=== PATIENT | female | born 1980 | race Hispanic/Latino ===

== ENCOUNTER 2017-12-08 20:20 | Observation (INO) | payer OTHER ==
[~2017-12-08] VITALS: Ht 160 cm; Wt 89.4 kg
[2017-12-08 21:10] LABS: BILIRUBIN,URINE NEGATIVE (NEGATIVE); UROBILINOGEN,URINE NORMAL (NEGATIVE)
[2017-12-08 21:11] LABS: APPEARANCE,URINE CLEAR (CLEAR); UA COLOR STRAW (YELLOW)
[2017-12-08 22:53] VITALS: BP 127/75
[2017-12-13] MEDS ORDERED: HYDR-926 PO (19:39)
== END 2017-12-08 23:00 | disposition home or self-care (01) ==
LOC: ATP 20:20
PROVIDERS: ADMIT Obstetrics & Gynecology; ATTEND Obstetrics & Gynecology
DX: O62.9 Abnormality of forces of labor, unspecified (principal); Z3A.39 39 weeks gestation of pregnancy
CPT/HCPCS: 81002; G0378 ×3

== ENCOUNTER 2017-12-11 19:22 | Inpatient (IN) | payer OTHER ==
[~2017-12-11] VITALS: Ht 160 cm; Wt 91.2 kg
[2017-12-11] MEDS ORDERED: CYTOTEC PV STA (19:36)
[2017-12-11] MEDS ORDERED: D5LR 1000ML 1,000 ML ONE (19:49)
[2017-12-11 19:54] LABS: MEAN CELL HGB 24.8 pg (26-34); MEAN CELL HGB CONCENTRATION 31.3 g/dL (33-37); MEAN CORP VOLUME 79.4 fL (78-100); MEAN PLATELET VOLUME 12.1 fL (7.8-11.0); RED CELL DISTRIBUTION WIDTH 15.8 % (11.5-14.5); WHITE BLOOD CELL 7.6 10^3/uL (4.5-11.0)
[2017-12-11] MEDS ORDERED: ATARAX PO PRN (20:00)
[2017-12-11] MEDS ORDERED: AMPICILLIN SODIUM ONE (20:11)
[2017-12-11] MEDS ORDERED: NS 100ML 100 ML IV ONE (20:11)
[2017-12-11] MEDS: LACTATED RINGERS 1,000 ML IV SCH (21:28)
[2017-12-11] MEDS ORDERED: AMPICILLIN IV SCH (21:30)
[2017-12-12] MEDS ORDERED: NS 100ML 100 ML IV ONE ×2 (01:28→05:20)
[2017-12-12] MEDS ORDERED: CYTOTEC PV STA (01:37)
[2017-12-12] MEDS: AMPICILLIN 1 GM in NS 100ML 100 ML IV SCH ×5 (01:40→17:35)
[2017-12-12] MEDS: LACTATED RINGERS 1,000 ML IV SCH ×2 (05:31→11:51)
[2017-12-12] MEDS ORDERED: LR/PITOCIN 500 ML IV ONE (05:50)
[2017-12-12] MEDS ORDERED: OXYTOCIN IV ONE (08:50)
[2017-12-12] MEDS ORDERED: LACTATED RINGERS IV ONE (08:50)
[2017-12-12] MEDS ORDERED: LACTATED RINGERS 2,000 ML ONE (11:33)
[2017-12-12] MEDS ORDERED: NAROPIN 0.2% 100 ML BAG 100 ML ONE (12:01)
[2017-12-12] MEDS ORDERED: SENSORCAINE-MPF 0.25% VIAL ONE (12:01)
[2017-12-12] MEDS ORDERED: LACTATED RINGERS 1,000 ML IV SCH (13:00)
[2017-12-12] MEDS ORDERED: LR/PITOCIN 500 ML IV SCH ×2 (13:00→20:00)
[2017-12-12] MEDS ORDERED: WATER ONE (15:29)
[2017-12-12] MEDS ORDERED: LIDOCAINE 1% VIAL ONE (15:29)
--- NOTE | 2017-12-12 19:28 | PRM.DELNOT ---
Delivery Summary Delivery: Spont. Vaginal Delivery (FAILED VACUUM (TWO POP-OFF's)--PT SUBSEQUENTLY PUSHED HER BABY OUT; NO NUCHAL CORD; CLEAR-COLORED FLUID/MEMBRANES THROUGHOUT; PITOCIN MAX AT 4mU/min; EPIDURAL WORKING WELL; DELIVERY AT 1841) EBL: 200 Repair: 1 Degree (First degree vaginal/perineal--repaired with 2-0 Chromic in layers; good cosmetic effect achieved) Scores: 8 and 9 Sex of : Female Weight (Grams): 3809 Presentation: vtx MICHAELLE BECKHAM MD Dec 12, 2017 19:28
--- NOTE | 2017-12-12 19:35 | PCM.HP ---
OB - Chief Complaint & HPI Date of Admission: Date of Admission: Dec 11, 2017 at 19:22 Diagnosis Cassie Guzman is a 37yo Hisp female Armenian-only speaking, with PNC with [facility] at the [facility] who was brought in for induction of labor yesterday evening with Cytotec. She received two doses of Cytotec intravaginally. I performed AROM/Clear at 0954. She is currently on Pitocin 4mU/min and her epidural is working well. She is fully dilated and ready to push. She was brought in for induction for more of an elective reason. 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 She has been in severe discomfort for nearly the entire . She is GBS+ and she has been receiving Ampicillin IV for GBS prophylaxis. 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 GBS Status: Positive OB - Admission Exam Physical Exam HEENT: NCAT Lungs: Clear Abdomen: Gravid Extremities: Normal Reflexes: Normal Cervical Dilatation: 10cm Effacement: 100% Station: +3 Membranes: Ruptured Amniotic Fluid: Clear Heart Rate: 140's Accelerations: Accelerations Present Decelerations: Variable Decelerations Detention Variability: Average (6-25) Contractions on Admission: >10 Minutes Apart Date/Time Contractions Began;: N/A Frequency of Contractions: Q 2-3 mins apart Intensity: Moderate Presentation: vtx OB - Assessment/Plan Assessment Assessment: induction of labor Plan Plan: Expectant Management (PUSH!!) MICHAELLE BECKHAM MD Dec 12, 2017 19:35
[2017-12-12] MEDS ORDERED: DERMOPLAST SPRAY TP PRN (20:00)
[2017-12-12] MEDS ORDERED: NORCO 5MG PO PRN ×2 (20:00)
[2017-12-12] MEDS ORDERED: TYLENOL PO PRN (20:00)
[2017-12-12] MEDS ORDERED: LANOLIN HYDROUS TP PRN (20:00)
[2017-12-12] MEDS ORDERED: MYLANTA PO PRN (20:00)
[2017-12-12] MEDS ORDERED: MOTRIN PO PRN (20:00)
[2017-12-12] MEDS ORDERED: TUCKS TP PRN (20:00)
[2017-12-12] MEDS ORDERED: COLACE PO SCH (21:00)
[2017-12-13 05:24] LABS: BASOPHIL % 0.1 % (0.0-0.2); EOSINOPHIL # 0.1 10^3/uL (0.0-0.2); EOSINOPHIL % 0.4 % (0.0-5.0); HEMOGLOBIN 9.8 g/dL (12.0-15.0); LYMPHOCYTES % 14.6 % (24.0-44.0); MEAN CELL HGB 24.7 pg (26-34); MEAN CELL HGB CONCENTRATION 31.3 g/dL (33-37); MEAN PLATELET VOLUME 12.5 fL (7.8-11.0); MONOCYTES # 1.3 10^3/uL (0.3-0.8); MONOCYTES % 9.1 % (5.0-12.0); NEUTROPHIL # 10.5 10^3/uL (1.8-7.7); NEUTROPHILS % 75.3 % (41.0-85.0); RED CELL DISTRIBUTION WIDTH 15.8 % (11.5-14.5); WHITE BLOOD CELL 13.9 10^3/uL (4.5-11.0)
[2017-12-13] MEDS ORDERED: HYDR-926 PO (19:39)
--- NOTE | 2017-12-13 19:41 | PRM.DC ---
OB Discharge Summary Discharge Summary Discharge Diagnosis: Status Post (2 pop-off's with Kiwi vacuum--pt pushed her baby out; this was a successful induction of labor with Pitocin) Complications: No Complications Abnormal Lab Results Laboratory Tests Test 12/11/17 19:47 12/13/17 05:00 White Blood Count 7.6 10^3/uL 13.9 10^3/uL Red Blood Count 4.03 10^6/uL 3.96 10^6/uL Hemoglobin 10.0 g/dL 9.8 g/dL Hematocrit 32.0 % 31.3 % Mean Corpuscular Volume 79.4 fL 79.0 fL Mean Corpuscular Hemoglobin 24.8 pg 24.7 pg Mean Corpuscular Hemoglobin Concent 31.3 g/dL 31.3 g/dL Red Cell Distribution Width 15.8 % 15.8 % Platelet Count 164 10^3/uL 147 10^3/uL Mean Platelet Volume 12.1 fL 12.5 fL Hepatitis B Surface Antibody Non Reactive Neutrophils (%) (Auto) 75.3 % Lymphocytes (%) (Auto) 14.6 % Monocytes (%) (Auto) 9.1 % Neutrophils # (Auto) 10.5 10^3/uL Lymphocytes # (Auto) 2.0 10^3/uL Monocytes # (Auto) 1.3 10^3/uL Absolute Immature Granulocyte (auto 0.07 10^3 u/L Eosinophils % 0.4 % Basophils % 0.1 % Basophils # 0.0 10^3/uL Eosinophil Count 0.1 10^3/uL Percent Immature Gran (Cell Imm) 0.50 % Medications: Other (Rx for Mora 5/325 #30 no refills, written on triplicate prescription pad) Discharge Disposition: Stable Discharge Instructions: Pelvic Rest x 6 Weeks, Clinic F/U 1-2 Weeks, Regular Diet, Regular Activity, Meds as Prescribed, Call MD for Problems MICHAELLE BECKHAM MD Dec 13, 2017 19:41
[2017-12-14 09:20] VITALS: BP 131/76
== END 2017-12-14 10:00 | disposition home or self-care (01) | DRG 775 ==
LOC: LND 19:22
PROVIDERS: ADMIT Hospitalist; ATTEND Hospitalist
PROC: 10E0XZZ Delivery of Products of Conception, External Approach (ICD-10-PCS; principal; 2017-12-11)
PROC: 10907ZC Drainage of Amniotic Fluid, Therapeutic from Products of Conception, Via Natural or Artificial Opening (ICD-10-PCS; 2017-12-11)
PROC: 0HQ9XZZ Repair Perineum Skin, External Approach (ICD-10-PCS; 2017-12-11)
PROC: 3E0S3BZ Introduction of Anesthetic Agent into Epidural Space, Percutaneous Approach (ICD-10-PCS; 2017-12-11)
PROC: 00HU33Z Insertion of Infusion Device into Spinal Canal, Percutaneous Approach (ICD-10-PCS; 2017-12-11)
DX: O99.824 Streptococcus B carrier state complicating childbirth (principal); O76 Abnormality in fetal heart rate and rhythm complicating labor and delivery; O70.0 First degree perineal laceration during delivery; O87.4 Varicose veins of lower extremity in the puerperium; Z37.0 Single live birth; O66.5 Attempted application of vacuum extractor and forceps; Z3A.39 39 weeks gestation of pregnancy
CPT/HCPCS: 36415; 59400; 82948; 85025; 85027; 86706; 86900; J0290; J2001; J2590; J3490; J7042; J7050; J7120

== ENCOUNTER 2018-03-02 02:44 | Day surgery (SDC) | payer OTHER ==
[2018-02-27 15:54] VITALS: BP 134/89
[2018-02-27 16:13] LABS: BASOPHIL % 0.3 % (0.0-0.2); EOSINOPHIL # 0.1 10^3/uL (0.0-0.2); EOSINOPHIL % 0.6 % (0.0-5.0); HEMOGLOBIN 13.4 g/dL (12.0-15.0); LYMPHOCYTES # 2.3 10^3/uL (1.0-4.8); LYMPHOCYTES % 29.4 % (24.0-44.0); MEAN CELL HGB 26.9 pg (26-34); MEAN CELL HGB CONCENTRATION 33.8 g/dL (33-37); MEAN CORP VOLUME 79.7 fL (78-100); MEAN PLATELET VOLUME 10.8 fL (7.8-11.0); MONOCYTES # 0.4 10^3/uL (0.3-0.8); MONOCYTES % 5.7 % (5.0-12.0); NEUTROPHILS % 63.9 % (41.0-85.0); RED CELL DISTRIBUTION WIDTH 18.2 % (11.5-14.5); WHITE BLOOD CELL 7.8 10^3/uL (4.5-11.0)
[2018-02-27 16:15] LABS: BILIRUBIN,URINE NEGATIVE (NEGATIVE); UROBILINOGEN,URINE NORMAL (NEGATIVE)
[2018-02-27 16:21] LABS: CARBON DIOXIDE 21.7 mmol/L (20.0-32)
[2018-02-27 16:29] LABS: APPEARANCE,URINE HAZY (CLEAR); UA COLOR YELLOW (YELLOW)
[~2018-03-02] VITALS: Ht 160 cm; Wt 83.5 kg
[2018-03-02] VITALS (10 sets, daily range): BP systolic 106–136; BP diastolic 43–76
[~2018-03-02 02:44] MED LIST: HYDR-926 PO
--- NOTE | 2018-03-02 02:46 | PCM.HP ---
History of Present Illness Reason for Visit: (1) Sterilization ICD Code: Z30.2 - Encounter for sterilization SNOMED: [id number] Was this Problem Present on Ad: Yes-DX present @time ofIP Hx of Present Illness This patient is a 37yo LMP 02/09/18 on Depo provera for contraception here for sterilization. She has been counseled on the risks, benefits, and alternatives of surgery, cinlduing risk of pain, bleeding, injury to uterus/ bowel/ovary, risk of regret, alternatives including contraceptive pills, implant , and IUD. No significant past medical or surgical history. Social history-she drinks alcohol less than once a month, does not smoke, and does not use recreation drugs. Past Medical History Hx Last Menstrual Period: 02/09/18 Vaccines/Immunizations up-to-d: Yes Travel History EBOLA RISK:Travel to/contact w: No Is pt experiencing any Ebola s: No Review of Systems Constitutional: No: Fever, Chills, Sweats, Weakness, Malaise, Other Eyes: No: Pain, Vision change, Conjunctivae inflammation, Eyelid inflammation, Other, Redness ENT: No: Ear pain, Ear discharge, Nose pain, Nose discharge, Nose congestion, Mouth pain, Mouth swelling, Throat pain, Throat swelling, Other Respiratory: No: Cough, Dry, Shortness of breath, SOB with excertion, Wheezing , Hemoptysis, Pleuritic Pain, Sputum, Wheezing, Other Cardiovascular: No: Chest Pain, Palpitations, Orthopnea, Paroxysmal Noc. Dyspnea, Edema, Lt Headedness, Other Gastrointestinal: No: Nausea, Vomiting, Abdominal Pain, Diarrhea, Constipation , Melena, Hematochezia, Other Genitourinary: No Dysuria, No Frequency, No Incontinence, No Hematuria, No Retention, No Other Musculoskeletal: No: other, neck pain, shoulder pain, arm pain, back pain, hand pain, leg pain, foot pain Skin: No: Rash, Lesions, Jaundice, Bruising, Other Neurological: No: Weakness, Numbness, Incoordination, Change in speech, Confusion, Seizures, Other Allergies: Coded Allergies: No Known Allergies (Unverified , 02/27/18) No Active Prescriptions or Reported Meds VTE VTE Risk Total Score: 2 VTE Risk Score VTE Risk: Score 0-1 = Low Risk (Aggressive mobilization; early ambulation; no VTE prophylaxis required) Score 2: Moderate Risk (Intermittent/Pneumatic Compression Device OR Lovenox/Heparin/Coumadin) Score 3-4: High Risk (Intermittent/Pneumatic Compression Device AND Lovenox/Heparin/Coumadin) Score > or =5: Highest Risk (Intermittent/Pneumatic Compression Device AND Lovenox/Heparin/Coumadin) Antico:Hep/LMWH/Coum/Xarelto: No Mechanical device ordered: Yes VTE VTE Present on Admission: No Currently receiving anticoagul: No VTE Risk Total Score: 2 Antico:Hep/LMWH/Coum/Xarelto: No Mechanical device ordered: Yes Exam Vital Signs Vital Signs Date Time Temp Pulse Resp B/P (MAP) Pulse Ox O2 Delivery O2 Flow Rate FiO2 03/02/18 10:38 Room Air 03/02/18 10:38 97.8 80 16 136/62 (86) 99 General Appearance: Alert, Oriented X3, Cooperative, No acute distress HEENT: Atraumatic, PERRLA, EOMI, Mucous membr. moist/pink Respiratory: Clear to auscultation Cardiovascular: Regular rate, Normal S1, Normal S2, No murmurs Abdominal: Normal bowel sounds, No tenderness Extremities: No clubbing, No cyanosis, No edema Skin: No rash, No breakdown, No lesions Neuro: Normal gait, Normal speech Psych/Mental Status: Mental status NL, Mood NL Assessment/Plan Assessment/Plan Assessment/Plan 37yo desiring sterilization. We will proceed with laparoscopic sterilization, followed by discharge home. Patient History: Hypertension 33 FATHER No known health problems 32 MOTHER, , Age:37 G8 BROTHER G8 SISTER G8 SISTER 19 CHILD 19 CHILD 19 CHILD G8 BROTHER 19 CHILD No Family History of: Alzheimer's disease Asthma Cerebrovascular disorder Chronic obstructive pulmonary disease Congestive heart failure Diabetes insipidus Diabetes mellitus Parkinson's disease CINTHIA CORNELL MD Mar 02, 2018 13:57
[2018-03-02] MEDS ORDERED: LACTATED RINGERS 1,000 ML ONE ×2 (05:15→14:04)
[2018-03-02] MEDS ORDERED: LACTATED RINGERS 1,000 ML IV SCH (10:30)
[2018-03-02] MEDS ORDERED: SODIUM CHLORIDE IR ONE (11:05)
[2018-03-02] MEDS ORDERED: SENSORCAINE-MPF 0.25% VIAL ONE (11:05)
[2018-03-02] MEDS ORDERED: SODIUM CHLORIDE IRR BAG 1,000 ML ONE (11:05)
[2018-03-02] MEDS ORDERED: XYLOCAINE 2%-EPI 1:100,000 ONE (12:28)
[2018-03-02] MEDS ORDERED: LIDOCAINE 2% VIAL ONE (12:32)
[2018-03-02] MEDS ORDERED: DECADRON ONE (12:32)
[2018-03-02] MEDS ORDERED: TORADOL ONE (12:32)
[2018-03-02] MEDS ORDERED: NEOSTIGMINE ONE (12:32)
[2018-03-02] MEDS ORDERED: ZOFRAN ONE (12:32)
[2018-03-02] MEDS ORDERED: ZEMURON IV ONE (12:33)
[2018-03-02] MEDS ORDERED: SUBLIMAZE ONE (12:33)
[2018-03-02] MEDS ORDERED: DIPRIVAN IV ONE (12:33)
[2018-03-02] MEDS ORDERED: SUBLIMAZE IV PRN (14:00)
[2018-03-02] MEDS ORDERED: PHENERGAN IV PRN (14:00)
[2018-03-02] MEDS ORDERED: ZOFRAN IV PRN (14:00)
[2018-03-02] MEDS ORDERED: ACET-685 PO (14:03)
[2018-03-02] MEDS ORDERED: IBUP-598 PO (14:03)
--- NOTE | 2018-03-02 16:04 | OPH ---
DATE OF SURGERY: 03/02/2018 PRIMARY SURGEON: Tylor Nathan MD COMPOUND WORKER: Dr. Awad. TIMBER SKIDDER: Dr. Hai Christianson. ANESTHESIA USED: General. PREOPERATIVE DIAGNOSIS: Multiparity, desiring permanent sterilization. POSTOPERATIVE DIAGNOSIS: Normal appearing pelvic anatomy. SURGICAL PROCEDURES PERFORMED: Laparoscopic bilateral salpingectomy. SPECIMENS COLLECTED: Bilateral fallopian tubes. ESTIMATED BLOOD LOSS: 11 mL. INDICATIONS: This patient had had multiple vaginal deliveries and was interested in permanent irreversible sterilization. She was counseled on various forms of contraception including pills, patches, subdermal contraceptive implant, intrauterine device and she after being counseled on the risks and benefits of each, agreed to undergo irreversible laparoscopic sterilization by salpingectomy. DESCRIPTION OF PROCEDURE: She was taken to the operating room, where general endotracheal anesthesia was administered without difficulty. She was placed in the dorsal lithotomy position and prepped and draped in the usual sterile fashion. A sponge stick was placed in the vagina and used to manipulate the uterus. Just superiorly to the umbilicus, local anesthetic consisting of 1% lidocaine with epinephrine was infiltrated and a stab incision was made through it. A 5 mm trocar containing a 5 mm 0 degree scope was introduced into the abdomen under direct visualization without difficulty. Pneumoperitoneum was then created. The abdomen was insufflated. Two other 5 mm ports were placed under direct visualization on the right and left lower quadrant respectively. Visualization of the pelvis revealed the above findings. First, the right fallopian tube was grasped and elevated using a laparoscopic Martin and using the STACIE Harmonic scalpel, the fallopian tube was serially clamped, coagulated, and cut. This was done starting on the isthmus, where the fallopian tube was transected and then serially clamped, coagulated, and cut to the fimbrial end. Using the laparoscopic Phelps, the fallopian tube now removed was extracted from the abdominal cavity and sent for pathology. In a similar fashion, the Martin was used to grasp and elevate the left fallopian tube, which was serially clamped, coagulated, and cut and the fallopian tube was removed and sent for pathology. Good hemostasis was noted at both salpingectomy sites. All instruments were removed from the patient's abdomen and gas was allowed to exit the abdomen after insufflation was turned off and all valves were open. All ports were removed under direct visualization without difficulty. Skin incisions were closed with 4-0 Vicryl and Dermabond was applied to the incision. All counts were correct x 2 at the end of the procedure. Sponge stick was removed from the vagina. The patient was returned to the supine position and awoken from anesthesia without difficulty. The patient tolerated the procedure well. She was transferred to the recovery room in stable condition. TYLOR NATHAN MD DR: ROMIE/darrius JOB# [id number]
== END 2018-03-02 15:27 | disposition home or self-care (01) | DRG 761 ==
LOC: SDC 02:44
PROVIDERS: ATTEND Obstetrics & Gynecology
DX: Z30.2 Encounter for sterilization (principal); E66.9 Obesity, unspecified; Z68.32 Body mass index [BMI] 32.0-32.9, adult
CPT/HCPCS: 36415 ×2; 58661; 80051; 81000; 84703; 85025; 86900; 87086; 88302 ×2; J1100; J1885; J2001; J2405; J2710; J3010; J3490 ×3; J7030 ×2; J7120 ×2